=== PATIENT | female | born 1935 | race Caucasian/White ===

== ENCOUNTER 2017-07-29 18:01 | Inpatient (IN) | payer OTHER, MEDICARE ==
[~2017-07-29] VITALS: Ht 157.5 cm; Wt 72.9 kg
[~2017-07-29 18:01] MED LIST: ADULT LOW DOSE81 M1 PO; ALLERGY10 MG PO; AMLODIPINE BESYL5 MG PO; AQUASOL-A,10000 UNIT PO; ASPIRIN E.C.81 M1 PO; ASPIRIN81 M1 PO; ATORVASTATIN CA40 MG PO; AVELOX ABC PAC400 MG PO; AVELOX400 MG PO; BONIVA150 MG PO; CALCITRIOL0.25 MCG; CALCITRIOL0.25 MCG PO; CALCIUM + D 601 EACH PO; CALCIUM 600 WI1 EAC2 PO; CALCIUM CARBON600 M1 PO; CALCIUM CARBON600 MG PO; CARDIZEM CD,CA180 MG PO; CARDIZEM CD180 MG PO; CHILD CHEW VIT1 EACH PO; CHILDREN'S MUL1 EAC6 PO; CLARITIN,ALAVAR10 MG PO; CRANBERRY TABL1 EACH PO; CREON PO; Cardizem CD,Cartia X PO; DELTASONE10 MG PO; DELTASONE20 MG PO; FELDENE20 MG PO; FISH OIL PO; FLAGYL; FLAGYL250 MG PO; FLAGYL500 MG PO; FLONASE16 G1; FLONASE16 G1 BOTH NARES; FLOVENT DISKUS1 DIS2 IH; FUROSEMIDE20 MG PO; Feldene PO; Flonase BOTH NARES; GAS RELIEF125 M1 PO; GAS-X80 MG PO; HYDROCHLOROTHIA25 MG PO; LEVAQUIN750 MG PO; LEVOTHROID,S0.112 MG PO; LEVOTHYROXINE112 MCG PO; LEVOXYL112 MCG PO; LIPITOR40 MG PO; LO-DOSE ASPIRIN81 M1 PO; Levothroid,Synthroid PO; METOPROLOL SUCC50 MG PO; MULTIVITAMIN1 EAC1 PO; MYLICON,MYLANTA80 MG PO; Mag-Ox PO; Mylicon,Mylanta Gas, PO; NAPROSYN500 MG PO; NAPROXEN500 M1 PO; NASONEX17 GM NS; NEXIUM40 MG PO; NORVASC5 MG PO; OMEGA 3 1,0001 EACH PO; OMEGA 3-6-91200 MG PO; Oyst-Cal D, Oscal W/ PO; PENTASA250 MG PO; PIROXICAM20 MG PO; PREDNISONE; PREDNISONE10 M2 PO; PREDNISONE20 M1 PO; PRINZIDE 10-121 EACH PO; PRINZIDE 20-121 EACH PO; PROMETHAZINE12.5 M1 PO; QUESTRAN4 GM/PACKE PO; ROCALTROL0.25 MCG PO; SIMETHICONE; SIMETHICONE1 ML MC; SIMVASTATIN80 M1 PO; SYNTHROID112 MCG PO; SYNTHROID125 MCG PO; SYNTHROID137 MCG PO; THERAGRAN1 TABLET PO; TOPROL XL25 MG PO; TOPROL XL50 MG PO; TOPROL XL6.25 MG PO; TRAMADOL HCL50 MG PO; TYLENOL EXTRA500 MG PO; ULTRAM50 MG PO; VICODIN,LORT1 TABLET PO; VITAMIN D1000 INTUN PO; Vancocin Oral Soluti PO; Vicodin,Lortab 5/500 PO; XANAX0.125 MG PO; ZANTAC150 MG PO; ZANTAC75 M1 PO; ZESTORETIC,P1 TABLE1 PO; ZOCOR80 M1 PO; ZYRTEC10 M2 PO; ZYRTEC10 M3 PO; ZYVOX600 MG PO; Zestoretic,Prinzide PO; Zocor PO; ZyrTEC PO; [UNRECOGNIZED DRUG - REMARK] PO; [UNRECOGNIZED DRUG - REMARK] PO
[2017-07-29 19:17] LABS: HEMATOCRIT 39.4 % (36.0-46.0); HEMOGLOBIN 12.9 G/DL (11.9-15.5); MCH 29.6 PG (29.0-34.0); MCHC 32.7 G/DL (30.0-36.0); MCV 90.4 FL (83-99); PLATELET COUNT 370 K/uL (156-360); RBC DIS.WIDTH-SD 43.2 % (39-53); RED BLOOD COUNT 4.36 M/uL (3.80-5.20); WHITE BLOOD COUNT 11.3 K/uL (4.1-10.2)
[2017-07-29 20:17] LABS: ALBUMIN 3.9 g/dL (3.2-4.8); CHLORIDE 110 mEq/L (99-109); POTASSIUM 5.2 mEq/L (3.7-5.4); SODIUM 133 mEq/L (136-147)
[2017-07-29 20:20] LABS: GLUCOSE 113 mg/dL (70-99); TOTAL PROTEIN 7.6 g/dL (6.4-8.3)
[2017-07-29 20:21] LABS: TOTAL BILIRUBIN 0.4 mg/dL (0.0-1.0)
[2017-07-29 20:23] LABS: ALKALINE PHOSPHATASE 115 IU/L (3-129); CREATININE 4.4 mg/dL (0.6-1.3); GFR ESTIMATE (CALCULATED) 10 mL/min/
[2017-07-29 20:24] LABS: UREA NITROGEN (BUN) 84 mg/dL (9-23)
[2017-07-29 20:25] LABS: AST (GOT) 16 IU/L (2-34)
[2017-07-29 20:26] LABS: ALT (GPT) 21 IU/L (3-49)
[2017-07-29 21:09] LABS: APPEARANCE SL.HAZY ((CLEAR)); BILIRUBIN NEGATIVE; BLOOD MODERATE; COLOR YELLOW ((YELLOW)); GLUCOSE (STRIP) NEGATIVE; KETONES NEGATIVE; LEUKOCYTES TRACE; NITRITE NEGATIVE; PROTEIN (STRIP) NEGATIVE; SPECIFIC GRAVITY 1.012 (1.000-1.030); UROBILINOGEN 0.2 MG/DL (0.2-1.0)
[2017-07-29 21:22] LABS: BACTERIA 1+ /HPF; EPITHELIAL CELLS RARE /HPF; MUCUS TRACE /LPF; RED BLOOD CELLS 0-5 /HPF (0-5); UCUL ADDED? YES
[2017-07-30] VITALS (8 sets, daily range): BP systolic 104–148; BP diastolic 49–63
[2017-07-30 07:51] LABS: INTACT PARATHYROID HORMONE 88 pg/mL (10-69)
[2017-07-30 09:34] LABS: ALBUMIN 3.3 G/DL (3.2-4.8); CHLORIDE 109 MEQ/L (99-109); GLUCOSE 137 mg/dL (70-99); PHOSPHORUS 5.3 mg/dL (2.5-4.9); POTASSIUM 4.3 MEQ/L (3.7-5.4); SODIUM 133 MEQ/L (136-147); UREA NITROGEN (BUN) 82 mg/dL (9-23)
[2017-07-30 09:37] LABS: CREATININE 3.6 MG/DL (0.6-1.3); GFR ESTIMATE (CALCULATED) 13 mL/min/
[2017-07-30 09:39] LABS: HEMATOCRIT 32.7 % (36.0-46.0); HEMOGLOBIN 10.2 G/DL (11.9-15.5); MCH 28.6 PG (29.0-34.0); MCHC 31.2 G/DL (30.0-36.0); MCV 91.6 FL (83-99); PLATELET COUNT 288 K/uL (156-360); RBC DIS.WIDTH-SD 43.4 % (39-53); RED BLOOD COUNT 3.57 M/uL (3.80-5.20); WHITE BLOOD COUNT 6.5 K/uL (4.1-10.2)
[2017-07-30 11:02] LABS: ERTH.SED.RATE 47 MM/HR (0-30)
[2017-07-30 14:10] LABS: HEMATOCRIT 30.7 % (36.0-46.0); HEMOGLOBIN 9.9 G/DL (11.9-15.5); MCV 91.6 FL (83-99)
[2017-07-30 16:40] LABS: STOOL OCCULT BLD 1ST SPECIMEN POSITIVE
[2017-07-30 16:44] LABS: STOOL OCCULT BLD 1ST SPECIMEN POSITIVE
[2017-07-31 07:04] VITALS: BP 122/57
[2017-07-31 07:40] LABS: BASOPHIL (%) 0.6 % (0-1); EOSINOPHIL (%) 0.4 % (0-5); HEMATOCRIT 28.7 % (36.0-46.0); HEMOGLOBIN 9.8 G/DL (11.9-15.5); IMMATURE GRANULOCYTE (%) 0.8 % (0.0-0.7); LYMPHOCYTE (%) 33.1 % (15-42); LYMPHOCYTE COUNT 1.6 K/uL (1.0-2.8); MCH 30.3 PG (29.0-34.0); MCHC 34.1 G/DL (30.0-36.0); MCV 88.9 FL (83-99); MONOCYTE (%) 12.1 % (3-12); MONOCYTE COUNT 0.6 K/uL (0-0.8); NEUTROPHIL COUNT 2.6 K/uL (1.8-6.4); PLATELET COUNT 244 K/uL (156-360); RBC DIS.WIDTH-CV 13.2 % (11.8-14.6); RBC DIS.WIDTH-SD 42.8 % (39-53); RED BLOOD COUNT 3.23 M/uL (3.80-5.20); WHITE BLOOD COUNT 4.9 K/uL (4.1-10.2)
[2017-07-31 07:52] LABS: CHLORIDE 112 MEQ/L (99-109); CREATININE 2.8 MG/DL (0.6-1.3); GFR ESTIMATE (CALCULATED) 17 mL/min/; GLUCOSE 97 mg/dL (70-99); IRON 96 MCG/DL (35-150); MAGNESIUM 1.5 mg/dl (1.3-2.7); PHOSPHORUS 4.4 mg/dL (2.5-4.9); POTASSIUM 3.7 MEQ/L (3.7-5.4); SODIUM 139 MEQ/L (136-147); TRANSFERRIN (TIBC) 179.5 mg/dL (215-380); TRANSFERRIN SATUR. 53 % (20-55); UREA NITROGEN (BUN) 63 mg/dL (9-23)
[2017-07-31 08:36] LABS: FERRITIN 109 NG/ML (10-291)
[2017-07-31 12:54] LABS: STOOL OCCULT BLD 1ST SPECIMEN NEGATIVE
[2017-07-31 15:16] VITALS: BP 110/51
[2017-07-31 18:34] LABS: CHLORIDE 111 MEQ/L (99-109); CREATININE 2.6 MG/DL (0.6-1.3); GFR ESTIMATE (CALCULATED) 19 mL/min/; GLUCOSE 103 mg/dL (70-99); POTASSIUM 4.1 MEQ/L (3.7-5.4); SODIUM 140 MEQ/L (136-147); UREA NITROGEN (BUN) 56 mg/dL (9-23)
[2017-07-31 19:23] VITALS: BP 136/63
[2017-07-31 20:04] LABS: HEMATOCRIT 31.1 % (36.0-46.0); MCH 29.4 PG (29.0-34.0); MCHC 32.2 G/DL (30.0-36.0); MCV 91.5 FL (83-99); PLATELET COUNT 258 K/uL (156-360); RBC DIS.WIDTH-CV 13.2 % (11.8-14.6); RBC DIS.WIDTH-SD 44.3 % (39-53); WHITE BLOOD COUNT 5.1 K/uL (4.1-10.2)
[2017-07-31 23:26] VITALS: BP 137/58
[2017-08-01 04:18] VITALS: BP 131/60
[2017-08-01 04:35] LABS: BASOPHIL (%) 0.7 % (0-1); EOSINOPHIL (%) 0.2 % (0-5); HEMATOCRIT 28.6 % (36.0-46.0); HEMOGLOBIN 9.5 G/DL (11.9-15.5); IMMATURE GRANULOCYTE (%) 0.5 % (0.0-0.7); LYMPHOCYTE (%) 32.9 % (15-42); LYMPHOCYTE COUNT 1.4 K/uL (1.0-2.8); MCH 29.9 PG (29.0-34.0); MCHC 33.2 G/DL (30.0-36.0); MCV 89.9 FL (83-99); MONOCYTE (%) 12.6 % (3-12); MONOCYTE COUNT 0.6 K/uL (0-0.8); NEUTROPHIL (%) 53.1 % (45-76); NEUTROPHIL COUNT 2.3 K/uL (1.8-6.4); PLATELET COUNT 255 K/uL (156-360); RBC DIS.WIDTH-CV 13.1 % (11.8-14.6); RBC DIS.WIDTH-SD 43.8 % (39-53); RED BLOOD COUNT 3.18 M/uL (3.80-5.20); WHITE BLOOD COUNT 4.4 K/uL (4.1-10.2)
[2017-08-01 04:55] LABS: CHLORIDE 113 mEq/L (99-109); POTASSIUM 3.8 mEq/L (3.7-5.4); SODIUM 139 mEq/L (136-147)
[2017-08-01 04:57] LABS: GLUCOSE 112 mg/dL (70-99)
[2017-08-01 04:58] LABS: MAGNESIUM 1.2 mg/dL (1.3-2.7)
[2017-08-01 05:01] LABS: CREATININE 2.5 mg/dL (0.6-1.3); GFR ESTIMATE (CALCULATED) 20 mL/min/; PHOSPHORUS 3.1 mg/dL (2.5-4.9)
[2017-08-01 05:02] LABS: UREA NITROGEN (BUN) 52 mg/dL (9-23)
[2017-08-01 07:10] VITALS: BP 140/64
[2017-08-01 11:38] VITALS: BP 130/58
[2017-08-01 15:41] VITALS: BP 133/59
[2017-08-01 16:28] LABS: STOOL OCCULT BLD 1ST SPECIMEN POSITIVE
[2017-08-01 19:49] VITALS: BP 145/65
[2017-08-01 20:28] LABS: HEMATOCRIT 30.5 % (36.0-46.0); HEMOGLOBIN 9.5 G/DL (11.9-15.5); MCH 28.8 PG (29.0-34.0); MCHC 31.1 G/DL (30.0-36.0); MCV 92.4 FL (83-99); PLATELET COUNT 249 K/uL (156-360); RBC DIS.WIDTH-CV 13.2 % (11.8-14.6); RBC DIS.WIDTH-SD 44.7 % (39-53); WHITE BLOOD COUNT 4.7 K/uL (4.1-10.2)
[2017-08-01 23:26] VITALS: BP 116/56
[2017-08-02 03:11] VITALS: BP 127/69
[2017-08-02 07:47] VITALS: BP 188/77
[2017-08-02 08:38] VITALS: BP 150/65
[2017-08-02 08:43] LABS: HEMATOCRIT 33.5 % (36.0-46.0); HEMOGLOBIN 10.7 G/DL (11.9-15.5); MCH 29.5 PG (29.0-34.0); MCHC 31.9 G/DL (30.0-36.0); MCV 92.3 FL (83-99); PLATELET COUNT 259 K/uL (156-360); RBC DIS.WIDTH-CV 13.2 % (11.8-14.6); RBC DIS.WIDTH-SD 44.9 % (39-53); RED BLOOD COUNT 3.63 M/uL (3.80-5.20); WHITE BLOOD COUNT 5.6 K/uL (4.1-10.2)
[2017-08-02 11:23] VITALS: BP 142/64
[2017-08-02 12:35] LABS: CHLORIDE 112 MEQ/L (99-109); GLUCOSE 105 mg/dL (70-99); SODIUM 144 MEQ/L (136-147); UREA NITROGEN (BUN) 39 mg/dL (9-23)
[2017-08-02 12:37] LABS: GFR ESTIMATE (CALCULATED) 25 mL/min/; MAGNESIUM 1.8 mg/dl (1.3-2.7)
[2017-08-02] MEDS ORDERED: LEVAQUIN750 MG PO (13:51)
[2017-08-03] MEDS ORDERED: LASIX20 MG PO (19:30)
[2017-08-03] MEDS ORDERED: PRINIVIL5 MG PO (19:30)
[2017-08-03] MEDS ORDERED: CATAPRES0.1 MG PO (19:30)
[2017-08-03] MEDS ORDERED: VITAMIN D31000 UNI2 PO (19:30)
[2017-08-03] MEDS ORDERED: TYLENOL EXTRA500 MG PO (19:31)
== END 2017-08-02 15:53 | disposition home health service (06) | DRG 682 ==
LOC: EME 18:01 → EDOF 22:37 → 3EAST 22:37 → ENRESERV 22:38 → 3EAST 07-30 02:05
PROVIDERS: Emergency Medicine; Hospitalist; Internal Medicine; Internal Medicine Nephrology; Specialist
DX: N17.9 Acute kidney failure, unspecified (principal); E87.2 Acidosis; N39.0 Urinary tract infection, site not specified; J18.9 Pneumonia, unspecified organism; E86.0 Dehydration; E87.1 Hypo-osmolality and hyponatremia; B95.0 Streptococcus, group A, as the cause of diseases classified elsewhere; B95.2 Enterococcus as the cause of diseases classified elsewhere; I12.9 Hypertensive chronic kidney disease with stage 1 through stage 4 chronic kidney disease, or unspecified chronic kidney disease; N18.3 Chronic kidney disease, stage 3 (moderate); N25.81 Secondary hyperparathyroidism of renal origin; D63.1 Anemia in chronic kidney disease; E03.9 Hypothyroidism, unspecified; E78.5 Hyperlipidemia, unspecified; E83.42 Hypomagnesemia; F32.9 Major depressive disorder, single episode, unspecified; G47.30 Sleep apnea, unspecified; I25.10 Atherosclerotic heart disease of native coronary artery without angina pectoris; I27.20 Pulmonary hypertension, unspecified; J98.11 Atelectasis; K21.9 Gastro-esophageal reflux disease without esophagitis; K50.80 Crohn's disease of both small and large intestine without complications; M81.0 Age-related osteoporosis without current pathological fracture; I08.0 Rheumatic disorders of both mitral and aortic valves; E73.9 Lactose intolerance, unspecified; I45.10 Unspecified right bundle-branch block; E83.39 Other disorders of phosphorus metabolism; E66.9 Obesity, unspecified; Z68.29 Body mass index [BMI] 29.0-29.9, adult; Z79.82 Long term (current) use of aspirin; Z86.73 Personal history of transient ischemic attack (TIA), and cerebral infarction without residual deficits; Z88.0 Allergy status to penicillin; Z88.2 Allergy status to sulfonamides; Z90.49 Acquired absence of other specified parts of digestive tract; Z93.2 Ileostomy status
CPT/HCPCS: 71020; 71250; 74176; 78582; 80048; 80048 91; 80053; 80069; 81003; 82272; 82330; 82728; 83540; 83605; 83630; 83735; 83930; 83935; 83970; 84100; 84300; 84466; 85014; 85018; 85025; 85027; 85651; 86140; 86850; 86870; 86900; 86901; 86905; 86920; 87040; 87077; 87086; 87186; 93005; 93970; 94640; 99202; 99281; 99283; A9540; A9567; C9113; J1644; J1956; J2405; J3475; J7030; J7040

== ENCOUNTER 2017-08-03 16:16 | Inpatient (IN) | payer OTHER, MEDICARE ==
[~2017-08-03] VITALS: Ht 157.5 cm; Wt 93.2 kg
[2017-08-03 18:37] LABS: HEMATOCRIT 32.9 % (36.0-46.0); HEMOGLOBIN 10.7 G/DL (11.9-15.5); MCH 29.5 PG (29.0-34.0); MCHC 32.5 G/DL (30.0-36.0); MCV 90.6 FL (83-99); PLATELET COUNT 281 K/uL (156-360); RBC DIS.WIDTH-CV 12.9 % (11.8-14.6); RED BLOOD COUNT 3.63 M/uL (3.80-5.20); WHITE BLOOD COUNT 7.6 K/uL (4.1-10.2)
[2017-08-03 18:43] LABS: CHLORIDE 109 mEq/L (99-109); POTASSIUM 4.4 mEq/L (3.7-5.4); SODIUM 143 mEq/L (136-147)
[2017-08-03 18:44] LABS: GLUCOSE 102 mg/dL (70-99)
[2017-08-03 18:48] LABS: CREATININE 2.2 mg/dL (0.6-1.3); GFR ESTIMATE (CALCULATED) 23 mL/min/
[2017-08-03 18:49] LABS: UREA NITROGEN (BUN) 31 mg/dL (9-23)
[2017-08-03] MEDS ORDERED: LASIX20 MG PO (19:30)
[2017-08-03] MEDS ORDERED: PRINIVIL5 MG PO (19:30)
[2017-08-03] MEDS ORDERED: CATAPRES0.1 MG PO (19:30)
[2017-08-03] MEDS ORDERED: VITAMIN D31000 UNI2 PO (19:30)
[2017-08-03] MEDS ORDERED: TYLENOL EXTRA500 MG PO (19:31)
[2017-08-03 19:48] LABS: APPEARANCE CLEAR ((CLEAR)); BILIRUBIN NEGATIVE; BLOOD MODERATE; COLOR YELLOW ((YELLOW)); GLUCOSE (STRIP) NEGATIVE; KETONES NEGATIVE; LEUKOCYTES MODERATE; NITRITE NEGATIVE; PROTEIN (STRIP) NEGATIVE; SPECIFIC GRAVITY 1.009 (1.000-1.030); UROBILINOGEN 0.2 MG/DL (0.2-1.0)
[2017-08-03 19:50] LABS: BACTERIA RARE /HPF; EPITHELIAL CELLS RARE /HPF; MUCUS TRACE /LPF; RED BLOOD CELLS 0-5 /HPF (0-5); WHITE BLOOD CELLS 15-20 /HPF (0-5)
[2017-08-04 00:11] LABS: LIPASE 42 U/L (1.0-51.0)
[2017-08-04 02:21] LABS: TROP-I INTERPRETATION NEGATIVE; TROPONIN-I 0.02 ng/mL (0.0-0.30)
[2017-08-04 04:33] VITALS: BP 142/63
[2017-08-04 07:14] LABS: CHLORIDE 111 MEQ/L (99-109); POTASSIUM 4.2 MEQ/L (3.7-5.4); SODIUM 141 MEQ/L (136-147)
[2017-08-04 07:20] LABS: CREATININE 2.2 MG/DL (0.6-1.3); GFR ESTIMATE (CALCULATED) 23 mL/min/; GLUCOSE 85 mg/dL (70-99); UREA NITROGEN (BUN) 28 mg/dL (9-23)
[2017-08-04 07:23] LABS: TROP-I INTERPRETATION NEGATIVE; TROPONIN-I 0.01 ng/mL (0.0-0.30)
[2017-08-04 09:20] VITALS: BP 146/63
[2017-08-04 10:08] LABS: ALKALINE PHOSPHATASE 76 IU/L (3-129); ALT (GPT) 20 IU/L (3-49); AST (GOT) 22 IU/L (2-34); DIRECT BILIRUBIN 0.1 mg/dL (0.0-0.3); TOTAL BILIRUBIN 0.3 MG/DL (0.0-1.0); TOTAL PROTEIN 5.1 G/DL (6.4-8.3)
[2017-08-04 12:46] VITALS: BP 146/81
[2017-08-04 13:57] LABS: TROP-I INTERPRETATION NEGATIVE; TROPONIN-I 0.02 ng/mL (0.0-0.30)
[2017-08-04 16:05] VITALS: BP 131/68
[2017-08-04 19:32] VITALS: BP 137/60
[2017-08-05 00:37] VITALS: BP 136/63
[2017-08-05 04:08] VITALS: BP 125/59
[2017-08-05 04:57] LABS: HEMATOCRIT 30.5 % (36.0-46.0); HEMOGLOBIN 9.7 G/DL (11.9-15.5); MCH 29.5 PG (29.0-34.0); MCHC 31.8 G/DL (30.0-36.0); MCV 92.7 FL (83-99); PLATELET COUNT 256 K/uL (156-360); RBC DIS.WIDTH-SD 44.4 % (39-53); RED BLOOD COUNT 3.29 M/uL (3.80-5.20)
[2017-08-05 05:11] LABS: CHLORIDE 112 mEq/L (99-109); POTASSIUM 4.1 mEq/L (3.7-5.4); SODIUM 140 mEq/L (136-147)
[2017-08-05 05:12] LABS: GLUCOSE 101 mg/dL (70-99)
[2017-08-05 05:16] LABS: CREATININE 2.5 mg/dL (0.6-1.3); GFR ESTIMATE (CALCULATED) 20 mL/min/
[2017-08-05 05:17] LABS: UREA NITROGEN (BUN) 28 mg/dL (9-23)
[2017-08-05 07:20] VITALS: BP 153/83
[2017-08-05 11:20] VITALS: BP 146/70
[2017-08-05 15:21] LABS: CHLORIDE 110 MEQ/L (99-109); POTASSIUM 4.1 MEQ/L (3.7-5.4); SODIUM 140 MEQ/L (136-147)
[2017-08-05 15:26] LABS: CREATININE 2.3 MG/DL (0.6-1.3); GFR ESTIMATE (CALCULATED) 22 mL/min/; GLUCOSE 96 mg/dL (70-99); UREA NITROGEN (BUN) 27 mg/dL (9-23)
[2017-08-05 16:20] VITALS: BP 143/67
[2017-08-05 20:00] VITALS: BP 150/84
[2017-08-06] VITALS (7 sets, daily range): BP systolic 134–189; BP diastolic 63–84
[2017-08-06 06:56] LABS: ALBUMIN 3.1 G/DL (3.2-4.8); CHLORIDE 109 MEQ/L (99-109); CREATININE 2.1 MG/DL (0.6-1.3); GFR ESTIMATE (CALCULATED) 24 mL/min/; GLUCOSE 88 mg/dL (70-99); PHOSPHORUS 3.4 mg/dL (2.5-4.9); POTASSIUM 3.8 MEQ/L (3.7-5.4); SODIUM 138 MEQ/L (136-147); UREA NITROGEN (BUN) 22 mg/dL (9-23)
[2017-08-06 09:56] LABS: HEMATOCRIT 30.7 % (36.0-46.0); HEMOGLOBIN 9.5 G/DL (11.9-15.5); MCH 28.8 PG (29.0-34.0); MCHC 30.9 G/DL (30.0-36.0); PLATELET COUNT 251 K/uL (156-360); RBC DIS.WIDTH-CV 12.8 % (11.8-14.6); RBC DIS.WIDTH-SD 43.6 % (39-53); WHITE BLOOD COUNT 5.7 K/uL (4.1-10.2)
[2017-08-07 04:07] VITALS: BP 128/60
[2017-08-07 10:23] VITALS: BP 134/70
[2017-08-07 11:45] VITALS: BP 141/67
[2017-08-07 20:42] VITALS: BP 141/65
[2017-08-08 00:46] VITALS: BP 129/62
[2017-08-08 06:00] LABS: HEMATOCRIT 31.4 % (36.0-46.0); HEMOGLOBIN 9.9 G/DL (11.9-15.5); MCH 29.6 PG (29.0-34.0); MCHC 31.5 G/DL (30.0-36.0); PLATELET COUNT 214 K/uL (156-360); RBC DIS.WIDTH-CV 13.2 % (11.8-14.6); RBC DIS.WIDTH-SD 45.6 % (39-53); RED BLOOD COUNT 3.34 M/uL (3.80-5.20); WHITE BLOOD COUNT 4.8 K/uL (4.1-10.2)
[2017-08-08 06:27] LABS: CHLORIDE 112 MEQ/L (99-109); CREATININE 2.2 MG/DL (0.6-1.3); GFR ESTIMATE (CALCULATED) 23 mL/min/; GLUCOSE 91 mg/dL (70-99); POTASSIUM 3.7 MEQ/L (3.7-5.4); SODIUM 143 MEQ/L (136-147); UREA NITROGEN (BUN) 22 mg/dL (9-23)
[2017-08-08 06:29] LABS: MAGNESIUM 1.1 mg/dl (1.3-2.7)
[2017-08-08 11:00] VITALS: BP 137/78
[2017-08-08] MEDS ORDERED: LASIX20 MG PO (13:21)
[2017-08-08] MEDS ORDERED: NABI650T PO (13:21)
[2017-08-08] MEDS ORDERED: METOCLOPRAMIDE10 M2 PO (13:25)
[2017-08-08] MEDS ORDERED: PROTONIX40 MG PO (13:25)
[2017-08-08 16:00] VITALS: BP 134/72
[2017-08-08 19:00] VITALS: BP 182/78
[2017-08-09 00:53] VITALS: BP 144/65
[2017-08-09 04:52] VITALS: BP 121/58
[2017-08-09 06:21] LABS: CHLORIDE 109 MEQ/L (99-109); CREATININE 2.1 MG/DL (0.6-1.3); GFR ESTIMATE (CALCULATED) 24 mL/min/; GLUCOSE 93 mg/dL (70-99); POTASSIUM 3.8 MEQ/L (3.7-5.4); SODIUM 141 MEQ/L (136-147); UREA NITROGEN (BUN) 21 mg/dL (9-23)
[2017-08-09 08:45] VITALS: BP 148/76
[2017-08-09 11:20] VITALS: BP 140/61
== END 2017-08-09 14:16 | DRG 392 ==
LOC: EME 16:16 → EDOF 23:56 → ENRESERV 23:59 → 5WEST 08-04 01:26
PROVIDERS: Internal Medicine; Internal Medicine Nephrology; Nurse Practitioner Family; Physician Assistant
DX: R11.2 Nausea with vomiting, unspecified (principal); N30.01 Acute cystitis with hematuria; N17.9 Acute kidney failure, unspecified; K22.8 Other specified diseases of esophagus; K31.84 Gastroparesis; E87.2 Acidosis; N18.3 Chronic kidney disease, stage 3 (moderate); D64.9 Anemia, unspecified; K50.911 Crohn's disease, unspecified, with rectal bleeding; E03.9 Hypothyroidism, unspecified; K21.9 Gastro-esophageal reflux disease without esophagitis; I35.0 Nonrheumatic aortic (valve) stenosis; E78.5 Hyperlipidemia, unspecified; I12.9 Hypertensive chronic kidney disease with stage 1 through stage 4 chronic kidney disease, or unspecified chronic kidney disease; Z93.3 Colostomy status; Z93.2 Ileostomy status; Z68.37 Body mass index [BMI] 37.0-37.9, adult; Z79.82 Long term (current) use of aspirin; Z79.899 Other long term (current) drug therapy; Z95.2 Presence of prosthetic heart valve; Z90.710 Acquired absence of both cervix and uterus; Z90.49 Acquired absence of other specified parts of digestive tract; Z86.73 Personal history of transient ischemic attack (TIA), and cerebral infarction without residual deficits; Z87.440 Personal history of urinary (tract) infections; Z98.41 Cataract extraction status, right eye; Z82.3 Family history of stroke; Z98.42 Cataract extraction status, left eye; Z83.3 Family history of diabetes mellitus; Z82.49 Family history of ischemic heart disease and other diseases of the circulatory system; Z82.0 Family history of epilepsy and other diseases of the nervous system
CPT/HCPCS: 74018; 74020; 74241; 80048; 80048 91; 80069; 80076; 81003; 83605; 83690; 83735; 84484; 85027; 87040; 93005; 99281; 99285; C9113; G0378; G8978 GP CJ; G8982 GP CI; G8987 CK; G8988 GO CH; J1956; J2405; J2765; J7030; J7120

== ENCOUNTER 2017-09-29 22:16 | Inpatient (IN) | payer OTHER, MEDICARE ==
[~2017-09-29] VITALS: Ht 157.5 cm; Wt 86.0 kg
[~2017-09-29 22:16] MED LIST changes: +CATAPRES0.1 MG PO; +LASIX20 MG PO; +METOCLOPRAMIDE10 M2 PO; +NABI650T PO; +PRINIVIL5 MG PO; +PROTONIX40 MG PO; +VITAMIN D31000 UNI2 PO
[2017-09-29 23:30] LABS: BASOPHIL (%) 0.5 % (0-1); EOSINOPHIL (%) 0.3 % (0-5); HEMATOCRIT 36.9 % (36.0-46.0); HEMOGLOBIN 11.6 G/DL (11.9-15.5); IMMATURE GRANULOCYTE (%) 0.4 % (0.0-0.7); LYMPHOCYTE (%) 20.4 % (15-42); LYMPHOCYTE COUNT 1.5 K/uL (1.0-2.8); MCH 29.5 PG (29.0-34.0); MCHC 31.4 G/DL (30.0-36.0); MCV 93.9 FL (83-99); MONOCYTE (%) 10.4 % (3-12); MONOCYTE COUNT 0.8 K/uL (0-0.8); PLATELET COUNT 250 K/uL (156-360); RBC DIS.WIDTH-CV 13.3 % (11.8-14.6); RBC DIS.WIDTH-SD 46.3 % (39-53); RED BLOOD COUNT 3.93 M/uL (3.80-5.20); WHITE BLOOD COUNT 7.3 K/uL (4.1-10.2)
[2017-09-29 23:38] LABS: ALBUMIN 4.1 g/dL (3.2-4.8); CHLORIDE 119 mEq/L (99-109); POTASSIUM 5.1 mEq/L (3.7-5.4); SODIUM 137 mEq/L (136-147)
[2017-09-29 23:39] LABS: MAGNESIUM 1.6 mg/dL (1.3-2.7)
[2017-09-29 23:40] LABS: GLUCOSE 101 mg/dL (70-99)
[2017-09-29 23:41] LABS: TOTAL PROTEIN 6.8 g/dL (6.4-8.3)
[2017-09-29 23:42] LABS: TOTAL BILIRUBIN 0.3 mg/dL (0.0-1.0)
[2017-09-29 23:44] LABS: ALKALINE PHOSPHATASE 98 IU/L (3-129); CREATININE 2.9 mg/dL (0.6-1.3); GFR ESTIMATE (CALCULATED) 16 mL/min/; PHOSPHORUS 5.5 mg/dL (2.5-4.9)
[2017-09-29 23:45] LABS: UREA NITROGEN (BUN) 52 mg/dL (9-23)
[2017-09-29 23:46] LABS: AST (GOT) 18 IU/L (2-34)
[2017-09-29 23:47] LABS: ALT (GPT) 21 IU/L (3-49)
[2017-09-30] MEDS ORDERED: LISINOPRIL5 MG PO (00:37)
[2017-09-30] MEDS ORDERED: LEVOTHYROXINE125 MCG PO (00:39)
[2017-09-30 03:26] LABS: HEMOGLOBIN 11.3 G/DL (11.9-15.5); MCH 30.5 PG (29.0-34.0); MCHC 31.4 G/DL (30.0-36.0); RBC DIS.WIDTH-CV 13.3 % (11.8-14.6); RBC DIS.WIDTH-SD 47.8 % (39-53); RED BLOOD COUNT 3.71 M/uL (3.80-5.20); WHITE BLOOD COUNT 6.9 K/uL (4.1-10.2)
[2017-09-30 03:29] LABS: PLATELET COUNT 193 K/uL (156-360)
[2017-09-30 13:35] LABS: APPEARANCE SL.HAZY ((CLEAR)); BILIRUBIN NEGATIVE; BLOOD NEGATIVE; COLOR YELLOW ((YELLOW)); GLUCOSE (STRIP) NEGATIVE; KETONES NEGATIVE; LEUKOCYTES SMALL; NITRITE NEGATIVE; PROTEIN (STRIP) 30; SPECIFIC GRAVITY 1.011 (1.000-1.030); UROBILINOGEN 0.2 MG/DL (0.2-1.0)
[2017-09-30 13:41] LABS: BACTERIA RARE /HPF; EPITHELIAL CELLS RARE /HPF; MUCUS TRACE /LPF; RED BLOOD CELLS 0-5 /HPF (0-5); UCUL ADDED? YES
[2017-09-30 13:58] VITALS: BP 114/54
[2017-09-30 15:17] VITALS: BP 110/51
[2017-09-30 19:51] VITALS: BP 143/59
[2017-09-30 23:42] VITALS: BP 106/51
[2017-10-01 03:46] LABS: C DIFF TOXIN NEGATIVE (NEGATIVE)
[2017-10-01 03:47] VITALS: BP 113/59
[2017-10-01 07:31] LABS: CHLORIDE 118 MEQ/L (99-109); CREATININE 3.1 MG/DL (0.6-1.3); GFR ESTIMATE (CALCULATED) 15 mL/min/; GLUCOSE 87 mg/dL (70-99); POTASSIUM 4.5 MEQ/L (3.7-5.4); SODIUM 138 MEQ/L (136-147); UREA NITROGEN (BUN) 48 mg/dL (9-23)
[2017-10-01 08:11] LABS: BASE EXCESS -18.7 mEq/L (-3 to +3); CARBOXY HGB 1.6 % (0-5); METHEMOGLOBIN 1.6 % (0-1.5); PCO2 27 mm Hg (35-45); PO2 115 mm Hg (80-100)
[2017-10-01 08:12] LABS: COMMENTS - BLOOD GASES A+C+; SITE RR; pH 7.13 (7.35-7.45)
[2017-10-01 08:15] LABS: DEVICE RA
[2017-10-01 08:16] LABS: TOTAL RESP RATE 22 resp/min
[2017-10-01 08:18] VITALS: BP 101/42
[2017-10-01 13:00] VITALS: BP 122/57
[2017-10-01 15:23] VITALS: BP 117/59
[2017-10-01 19:30] VITALS: BP 127/60
[2017-10-02 00:02] VITALS: BP 103/53
[2017-10-02 04:04] VITALS: BP 102/54
[2017-10-02 06:13] LABS: BASOPHIL (%) 0.5 % (0-1); EOSINOPHIL (%) 1.2 % (0-5); EOSINOPHIL COUNT 0.1 K/uL (0-0.3); HEMATOCRIT 27.2 % (36.0-46.0); IMMATURE GRANULOCYTE (%) 0.2 % (0.0-0.7); LYMPHOCYTE (%) 29.4 % (15-42); LYMPHOCYTE COUNT 1.2 K/uL (1.0-2.8); MCH 30.6 PG (29.0-34.0); MCHC 33.1 G/DL (30.0-36.0); MONOCYTE (%) 11.8 % (3-12); MONOCYTE COUNT 0.5 K/uL (0-0.8); NEUTROPHIL (%) 56.9 % (45-76); NEUTROPHIL COUNT 2.4 K/uL (1.8-6.4); PLATELET COUNT 171 K/uL (156-360); RBC DIS.WIDTH-CV 13.4 % (11.8-14.6); RBC DIS.WIDTH-SD 45.5 % (39-53); WHITE BLOOD COUNT 4.2 K/uL (4.1-10.2)
[2017-10-02 06:15] LABS: MCV 92.5 FL (83-99); RED BLOOD COUNT 2.94 M/uL (3.80-5.20)
[2017-10-02 07:29] VITALS: BP 127/59
[2017-10-02 09:43] LABS: CHLORIDE 114 MEQ/L (99-109); CREATININE 2.8 MG/DL (0.6-1.3); GFR ESTIMATE (CALCULATED) 17 mL/min/; MAGNESIUM 1.3 mg/dl (1.3-2.7); PHOSPHORUS 4.9 mg/dL (2.5-4.9); SODIUM 141 MEQ/L (136-147); UREA NITROGEN (BUN) 44 mg/dL (9-23)
[2017-10-02 09:44] LABS: GLUCOSE 109 mg/dL (70-99); POTASSIUM 3.4 MEQ/L (3.7-5.4)
[2017-10-02 11:58] VITALS: BP 133/62
[2017-10-02 16:40] VITALS: BP 129/58
[2017-10-02 19:45] VITALS: BP 131/67
[2017-10-03 00:08] VITALS: BP 114/57
[2017-10-03 04:02] VITALS: BP 135/60
[2017-10-03 05:52] LABS: HEMATOCRIT 28.1 % (36.0-46.0); HEMOGLOBIN 9.2 G/DL (11.9-15.5); MCH 30.1 PG (29.0-34.0); MCHC 32.7 G/DL (30.0-36.0); MCV 91.8 FL (83-99); PLATELET COUNT 179 K/uL (156-360); RBC DIS.WIDTH-CV 13.4 % (11.8-14.6); RBC DIS.WIDTH-SD 45.2 % (39-53); RED BLOOD COUNT 3.06 M/uL (3.80-5.20); WHITE BLOOD COUNT 4.1 K/uL (4.1-10.2)
[2017-10-03 06:36] LABS: CHLORIDE 112 MEQ/L (99-109); CREATININE 2.6 MG/DL (0.6-1.3); GFR ESTIMATE (CALCULATED) 19 mL/min/; GLUCOSE 108 mg/dL (70-99); POTASSIUM 3.2 MEQ/L (3.7-5.4); SODIUM 144 MEQ/L (136-147); UREA NITROGEN (BUN) 42 mg/dL (9-23)
[2017-10-03 07:46] VITALS: BP 117/57
[2017-10-03 11:07] VITALS: BP 148/66
[2017-10-03] MEDS ORDERED: SOD CITRATE-CI473 ML PO (14:00)
== END 2017-10-03 14:59 | disposition home health service (06) | DRG 683 ==
LOC: EME → EDBD 22:16 → EME 22:16 → EDOF 09-30 01:11 → ENRESERV 09-30 01:19 → EDOF 09-30 01:59 → ENRESERV 09-30 11:44 → 5WEST 09-30 13:48
PROVIDERS: Emergency Medicine; Hospitalist; Internal Medicine; Internal Medicine Nephrology; Physician Assistant Medical
DX: N17.9 Acute kidney failure, unspecified (principal); E87.2 Acidosis; E87.6 Hypokalemia; E86.0 Dehydration; I27.20 Pulmonary hypertension, unspecified; I08.0 Rheumatic disorders of both mitral and aortic valves; I12.9 Hypertensive chronic kidney disease with stage 1 through stage 4 chronic kidney disease, or unspecified chronic kidney disease; N18.4 Chronic kidney disease, stage 4 (severe); D63.1 Anemia in chronic kidney disease; I25.10 Atherosclerotic heart disease of native coronary artery without angina pectoris; I45.10 Unspecified right bundle-branch block; K21.9 Gastro-esophageal reflux disease without esophagitis; G47.30 Sleep apnea, unspecified; R25.1 Tremor, unspecified; R00.0 Tachycardia, unspecified; E03.9 Hypothyroidism, unspecified; E78.5 Hyperlipidemia, unspecified; R06.02 Shortness of breath; F32.9 Major depressive disorder, single episode, unspecified; M81.0 Age-related osteoporosis without current pathological fracture; E66.9 Obesity, unspecified; Z68.34 Body mass index [BMI] 34.0-34.9, adult; Z86.73 Personal history of transient ischemic attack (TIA), and cerebral infarction without residual deficits; Z90.49 Acquired absence of other specified parts of digestive tract; Z90.710 Acquired absence of both cervix and uterus; Z93.2 Ileostomy status; Z98.41 Cataract extraction status, right eye; Z98.42 Cataract extraction status, left eye
CPT/HCPCS: 36600; 71046; 74019; 80048; 80053; 81003; 82803; 83605; 83735; 84100; 85025; 85027; 87086; 87177; 87329; 87493; 93005; 99281; 99285; G0378; J1644; J2405; J2765; J7030; J7070; S0028